=== PATIENT | female | born 1940 | race Caucasian/White ===

== ENCOUNTER → 2018-06-04 10:21 | Outpatient (CLI) | payer MEDICARE, SELFPAY ==
--- NOTE | 2018-06-04 10:23 | BI_ITS ---
MAMMOGRAPHY - BILATERAL SCREENING REASON FOR EXAM: Female, 77 years old. Routine annual screening examination. PERTINENT HISTORY: Grandmother with breast cancer. Remote left excisional breast biopsy. TECHNIQUE: Digital bilateral breast maikol (3D mammographic acquisition) in the CC and MLO projections. 2-D mediolateral oblique (MLO) and craniocaudad (CC) views of both breasts were obtained. CAD: Full Field Digital Mammography with Computer Added Detection was performed. COMPARISON: Comparison is made with prior study dated February 18, 2016. FINDINGS: Breast Composition: The breasts are almost entirely fatty. Since prior study, there has been an increase in the number of microcalcifications in the upper outer quadrant of the right breast. The patient will be recalled for additional views including compression magnification spot views. Stable small calcified nodule in the deep mid medial portion of the left breast. No other significant abnormalities are identified. BI/SCREENING MAMM (CAD), BILAT IMPRESSION: Increased number of microcalcifications in the upper lateral portion of the right breast as described. The patient will be recalled for additional views. Recall Side: Right Breast ASSESSMENT CATEGORY: BIRADS Category 0: Incomplete. Need additional imaging evaluation. A letter regarding these results will be sent to the patient by the facility within 30 days. Approximately 10% of breast cancers are not detected by mammography. A normal mammogram should not delay biopsy of a clinically suspicious abnormality. [id number] Electronically Signed: Devin Flowers MD at 12:21 EDT Tel [phone], Service support ,
--- NOTE | 2018-06-04 12:16 | ECHOD_ITS ---
Reason For Study: HTN Procedure This was a 2D Doppler, Color Flow transthoracic echocardiogram. Exam performed in department. Left Ventricle Normal LV size. Apical false tendon noted. Left ventricular systolic function is normal. The estimated ejection fraction is 65 %. Stage 1 diastolic dysfunction. No regional wall motion abnormalities noted. Right Ventricle Normal RV size. Normal systolic function. Atria Normal left atrium. Normal right atrium. Mitral Valve Normal mitral valve. Tricuspid Valve Normal tricuspid valve. Aortic Valve Normal aortic valve. Trisinus/trileaflet aortic valve. Pulmonic Valve Normal pulmonic valve. Great Vessels Normal aortic root. The pulmonary artery is normal size. Normal inferior vena cava. Pericardium/Pleural No pericardial effusion. MMode/2D Measurements & Calculations LVIDd: 3.6 cm IVSd: 0.94 cm Ao root diam: 3.3 cm LVIDs: 2.6 cm LVPWd: 0.99 cm LA dimension: 4.1 cm RVDd: 3.0 cm FS: 28.3 % LAV(MOD-bp): 46.8 ml LVAd ap4: 24.2 cm2 SV(MOD-sp4): 38.2 ml LAV(MOD-bp) Indexed: 26.4 ml/m2 EDV(MOD-sp4): 63.7 ml LAV(MOD-sp2): 44.5 ml EDV(sp4-el): 66.5 ml LAV(MOD-sp4): 49.6 ml LVAs ap4: 13.8 cm2 ESV(MOD-sp4): 25.4 ml ESV(sp4-el): 26.2 ml EF(MOD-sp4): 60.0 % EF(sp4-el): 60.6 % SV(sp4-el): 40.3 ml LA A4 area: 18.4 cm2 LA dimension(2D): 4.1 cm RA A4 area: 13.5 cm2 Time Measurements MV dec time: 0.38 sec Doppler Measurements & Calculations MV E max kieran: 68.6 cm/sec Lat Peak E' Kieran: 7.5 cm/sec Med Peak E' Kieran: 3.7 cm/sec MV A max kieran: 117.7 cm/sec E/E' lat: 9.2 E/E' med: 18.3 MV E/A: 0.58 Ao V2 max: 156.4 cm/sec LV V1 max: 111.7 cm/sec PA V2 max: 98.2 cm/sec Ao max P.8 mmHg LV V1 max P.0 mmHg Interpretation Summary Normal LV size. Left ventricular systolic function is normal. The estimated ejection fraction is 65 %. Stage 1 diastolic dysfunction. Structurally normal valves. Ordering Physician: Steve Sanderson Referring Physician: GABBY BONNER Performed By: Kimberli Scott RDCS, RVT
== END ==
PROVIDERS: Family Provider Family Medicine; PCP Family Medicine; Referring Provider Internal Medicine Cardiovascular Disease; Visit Provider Internal Medicine Cardiovascular Disease
DX: I25.10 Atherosclerotic heart disease of native coronary artery without angina pectoris (principal); Z12.31 Encounter for screening mammogram for malignant neoplasm of breast
CPT/HCPCS: 77063; 77067; 93306

== ENCOUNTER → 2018-06-06 12:55 | Outpatient (CLI) | payer MEDICARE, SELFPAY ==
--- NOTE | 2018-06-06 12:57 | BI_ITS ---
MAMMOGRAPHY - UNILATERAL DIAGNOSTIC: RIGHT BREAST REASON FOR EXAM: Female, 77 years old. Abnormal screening mammogram. PERTINENT HISTORY: Grandmother with breast cancer. TECHNIQUE: Compression spot views of the right breast were obtained. CAD: Full Field Digital Mammography with Computer Added Detection was performed. COMPARISON: Comparison is made with prior study dated June 04, 2018. FINDINGS: Breast Composition: The breasts are almost entirely fatty. Increasing number of microcalcifications in the upper outer portion of the right breast. A biopsy recommended. No other significant abnormalities are identified. BI/DIAG MAMM W/CAD, UNILAT IMPRESSION: Increase in number of calcifications in the upper outer quadrant of the right breast as described. A biopsy is recommended. ASSESSMENT CATEGORY: BIRADS Category 4: Suspicious - Biopsy Should Be Considered. A letter regarding these results will be sent to the patient by the facility within 30 days. Approximately 10% of breast cancers are not detected by mammography. A normal mammogram should not delay biopsy of a clinically suspicious abnormality. Electronically Signed: Devin Flowers MD at 14:19 EDT Tel [phone], Service support ,
== END ==
PROVIDERS: Family Provider Family Medicine; PCP Family Medicine; Visit Provider Family Medicine
DX: R92.0 Mammographic microcalcification found on diagnostic imaging of breast (principal)
CPT/HCPCS: 77065

== ENCOUNTER → 2018-06-07 10:02 | Outpatient (CLI) | payer MEDICARE, SELFPAY ==
--- NOTE | 2018-06-07 10:02 | COLBX_PTH ---
PATIENT: ROXI CAMPBELL LOC: [facility] U#:[id number] AGE/SX: 84/F ROOM: RE06/07/[address]: Dr. Rigo Jones MD : 1940 BED: DIS: SPEC #: [id number] RECD: 06/07/18 15:33 STATUS: SINDI GONZALEZ #: [id number] TRISTIN: 06/07/18 10:[address]: Rigo Jones DEPT: SURGICAL PATHOLOGY RECD BY: Jamse Levy ENTERED: 06/08/18 11:27 SP TYPE: COLON BX OTHR DR: Dr. Derek Mujica MD [facility] Tissues: Cecum, NOS Procedures: Surgery Specimen Level IV HEADER OPERATION: Colonoscopy with polypectomy PRE-OP DIAGNOSIS: Screening, history polyps TISSUE SUBMITTED: Polyp, cecum, rule out adenoma MICROSCOPIC DIAGNOSIS Polyp cecum, polypectomy: Tubular adenoma. Fragments of fecal material. SJ:bridget 06/11/18 MICROSCOPIC DESCRIPTION Slides are reviewed. GROSS DESCRIPTION Received in fixative is one container labeled with the patient's name and designated cecum polyp. The specimen consists of multiple irregular fragments of light ugarte soft tissue that in aggregate measure 0.5 x 0.3 x 0.1 cm. The specimen is totally submitted in one cassette. / AM:rbidget 06/08/18 TC:1 CPT: 67978
== END ==
PROVIDERS: Family Provider Family Medicine; PCP Family Medicine; Referring Provider Internal Medicine Gastroenterology; Visit Provider Internal Medicine Gastroenterology
DX: Z12.11 Encounter for screening for malignant neoplasm of colon (principal); Z86.010 Personal history of colon polyps
CPT/HCPCS: 88305

== ENCOUNTER → 2018-07-05 10:05 | Outpatient (CLI) | payer MEDICARE, SELFPAY ==
--- NOTE | 2018-07-05 | BRBX_PTH ---
PATIENT: ROXI CAMPBELL LOC: [facility] U#:[id number] AGE/SX: 84/F ROOM: RE07/05/[address]: Dr. Lucretia Capps MD : 1940 BED: DIS: SPEC #: [id number] RECD: 07/05/18 12:04 STATUS: SINDI LISA #: [id number] TRISTIN: 07/05/18 00:[address]: Lucretia Capps DEPT: SURGICAL PATHOLOGY RECD BY: Dawit Mcginnis ENTERED: 07/05/18 12:05 SP TYPE: BREAST BX OTHR DR: Dr. Derek Mujica MD Tissues: Right breast, NOS Procedures: Surgery Specimen Level IV HEADER OPERATION: Right breast stereotactic biopsy PRE-OP DIAGNOSIS: Right breast calcifications upper outer TISSUE SUBMITTED: Right breast calcifications ISCHEMIC TIME: 1 minute FIXATION TIME: 8.5 hours MICROSCOPIC DIAGNOSIS Right breast, upper outer region, needle core biopsy: Microfibroadenoma with clustered microcalcifications. No evidence of malignancy. AM:bridget 07/06/18 COMMENT Case has been reviewed in consultation with Dr. Diane who concurs with the above diagnosis. IDC:SJ MICROSCOPIC DESCRIPTION Slides are reviewed. GROSS DESCRIPTION Received is one container labeled with the patient's name and not further designated. The specimen consists of multiple elongated fragments of ugarte-yellow fibroadipose tissue that in aggregate measure 7.5 x 3 x 0.3 cm. The entire specimen is submitted in three cassettes. / SJ:bridget 07/05/18 TC:5 CPT: 82712
--- NOTE | 2018-07-05 11:28 | NURSING ---
POST BREAST BX NOTE, held pressure for 5 minutes no bleeding, no hardness felt, instructions and home care reviewed, skin pre and steri strips applied, telfa dressing applied, no drainage
--- NOTE | 2018-07-05 11:32 | OP.PCM_ITS ---
Report of Operation Date of Procedure: 07/05/18 Pre-Operative Diagnosis: abnormal calcifications on right breast mammograms Post-Operative Diagnosis: same Surgery/Procedure Performed:: right stereotactic breast biopsy Description of Surgical Findings:: abnormal calcifications upper outer right breast Type of Anesthesia:: Local - 1% xylocaine Anesthesiologist: none Specimen's removed: right breast tissue Estimated Blood Loss (mL): < 1 Fluids Replaced: none Description of Procedure: After informed consent was given, the patient was brought into the breast biopsy suite. Appropriate time out protocol was followed. She was then placed in the prone position on the stereotactic biopsy table. The patient?s right breast was then placed within the opening at the head of the table. A nurse paralegal compression mammogram was then obtained in the CC view. The suspicious radiological lesion was then identified. Stereo pictures of the lesion were then taken for XYZ coordinates. The Mammotome biopsy stylus was then positioned where it would be entering into the patient?s breast. The skin at this site was then cleansed with a surgical skin preparation. The skin and subcutaneous tissues at this site were then infiltrated with 1% xylocaine. A small skin incision was made with an 11 blade scalpel. The biopsy stylus was then positioned into the patient?s breast at the proper coordinates of depth. Using the Mammotome vacuum-assist device, several core samples of breast tissue were obtained. A specimen mammogram was the obtained and revealed that the abnormal calcifications were within the specimen. A hemostatic marker clip was then placed into the biopsy cavity and a nurse paralegal film revealed that it was properly deployed. The patient was then placed in the supine position and pressure was applied to the breast until no active bleeding was noted. Steristrips were applied to reapproximate the skin. A unilateral mammogram in the CC and MLO view were then taken which revealed that the marker clip was in the same area as the previous suspicious lesion. The patient tolerated the procedure well and was discharged from the breast biopsy suite in good condition. - Complications none noted
--- OUTSIDE RECORDS SUMMARY | 2018-08-30 12:01 | XMS RPT_ITS ---
:1940 Author Organization OHIP Support Name Relationship Address Phone R Unavailable Unavailable Unavailable AVISATUL MCCONNELLE Unavailable [address] + [place] [address] STAKE, RAÚL Unavailable [address] + [place] [address] R Unavailable Unavailable Unavailable AVISATUL MCCONNELLE Unavailable [address] + [place] [address] STAKE, RAÚL Unavailable [address] + [place] [address] R Unavailable Unavailable Unavailable AVISATUL MCCONNELLE Unavailable [address] + [place] [address] STAKE, RAÚL Unavailable [address] + [place] [address] R Unavailable Unavailable Unavailable AVIS, BROOK Unavailable [address] + [place] [address] STAKE, RAÚL Unavailable [address] + [place] [address] R Unavailable Unavailable Unavailable AVIS, BROOK Unavailable [address] + [place] [address] STAKE, RAÚL Unavailable [address] + [place] [address] R Unavailable Unavailable Unavailable AVIS, BROOK Unavailable [address] + [place] [address] STAKE, RAÚL Unavailable [address] + [place] [address] R Unavailable Unavailable Unavailable AVIS, BROOK Unavailable [address] + [place] [address] STAKE, RAÚL Unavailable [address] + [place] [address] Care Team Providers Name Role Phone LUCRETIA CAPPS Attending Unavailable GABBY MUJICA Referring Unavailable LUCRETIA CAPPS Attending Unavailable GABBY MUJICA Referring Unavailable Maria E, Steve Attending Unavailable TOMCHAK, GABBY Referring Unavailable TOMCHAK, GABBY Primary Care Unavailable Maria E, Steve Attending Unavailable Maria E, Steve Referring Unavailable TOMCHAK, GABBY Consulting Unavailable Maria E, Conley Attending Unavailable Maria E, Conley Referring Unavailable TOMCHAK, GABBY Primary Care Unavailable Maria E, Steve Attending Unavailable Maria E, Conley Referring Unavailable TOMCHAK, GABBY Primary Care Unavailable TOMCHAK, GABBY Consulting Unavailable Maria E, Steve Consulting Unavailable TOMCHAK, GABBY Attending Unavailable TOMCHAK, GABBY Primary Care Unavailable Jabour, Rigo Attending Unavailable Jazaheer, Rigo Referring Unavailable TOMCHAK, GABBY Primary Care Unavailable Lucretia Capps Attending Unavailable TOMCHAK, GABBY Primary Care Unavailable PROBLEMS PROBLEMS DATE TYPE CONDITION / CODE ATTENDING STATUS SOURCE 06/06/2018 Unknown 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, 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 / I25.10(ICD-10) 06/06/2018 Unknown Z12.31 - Encounter Maria E, Conley Active [facility] for screening Community mammogram for Hospital malignant neoplasm of Repository breast / Z12.31(ICD-10) 05/22/2018 Unknown I10 - Essential Maria E, Conley Active [place] (primary) Community hypertension / Hospital I10(ICD-10) Repository PROCEDURES PROCEDURES No Procedure Records FoundRESULTS RESULTS PROGRESS Observed: 07/12/2018 Status: COMPLETED Source: [place] 6:57 AM [facility] REPOSITORY HNO ID: [id number] Author: Lucretia Capps Service: (none) Author Type: Physician Type: Progress Notes Filed: 07/12/2018 7:00 AM Note Text: Roxi is s/p right stereotactic guided breast biopsy done on 07/05/18 Pathology reveals: Right breast, upper outer region, needle core biopsy: Microfibroadenoma with clustered microcalcifications. No evidence of malignancy Patient denies any problems. PMH/PSH - unchanged from previous note Review of systems: denies fevers Examination: wound is healing well, no evidence of infection Ecchymoses present, no hematoma Impression: microfibroadenoma Plan: I have explained to patient that she will require follow up with repeat right breast mammograms in 6 months. After radiological studies are done, she will follow up with me in the clinic for examination. Follow up with me sooner if worsening signs/symptoms. Patient to return to her primary physician for medical care. I have answered all of patient's questions and she has no further questions. CNOV Observed: 07/11/2018 Status: COMPLETED Source: [place] 2:00 PM [facility] REPOSITORY Office Visit (GENSWS) ROXI CAMPBELL ([id number]) 1940 F Date Time Provider Department 07/11/18 2:00 PM LUCRETIA CAPPSS During your visit today, we recorded the following information about you: Lucretia Capps MD 07/12/2018 7:00 AM Signed Roxi is s/p right stereotactic guided breast biopsy done on 07/05/18 Pathology reveals: Right breast, upper outer region, needle core biopsy: Microfibroadenoma with clustered microcalcifications. No evidence of malignancy Patient denies any problems. PMH/PSH - unchanged from previous note Review of systems: denies fevers Examination: wound is healing well, no evidence of infection Ecchymoses present, no hematoma Impression: microfibroadenoma Plan: I have explained to patient that she will require follow up with repeat right breast mammograms in 6 months. After radiological studies are done, she will follow up with me in the clinic for examination. Follow up with me sooner if worsening signs/symptoms. Patient to return to her primary physician for medical care. I have answered all of patient's questions and she has no further questions. Referring Provider: GABBY MUJICA [[id number]] Allergies As of Date: 07/11/2018 (No Known Allergies) Date Reviewed: 07/11/2018 Reviewed by: Batool Braga RN - Fully Assessed Reason for Visit: Post Op [174] Cmt: breast biopsy Primary Visit Diagnosis:Fibroadenoma of breast, right [D24.1] Order(s):[facility] [[id number]] Order #: [id number] FUTURE Prescriptions as of 07/11/2018 Sig: CHLORTHALIDONE 25 MG TABLET CARTIA XT 240 MG CAPSULE,EXTE* LISINOPRIL 40 MG TABLET LOVASTATIN 20 MG TABLET ASPIRIN 81 MG CHEWABLE TABLET Take 81 mg by mouth once odalis* ASCORBIC ACID (VITAMIN C) 1,0* Take 1,000 mg by mouth once d* Problem List As Of Date: 07/11/2018 (None) Follow-up and Disposition History Recorded Encounter Status:Closed by MD LUCRETIA CAPPS on 07/12/18 OPERATIVE REPORT Observed: 07/08/2018 Status: F Source: [place] 12:44 PM [facility] REPOSITORY [facility] Medical Records Department [address] [place] [address] Operative Report 07/05/18 1130 MR#: [id number] Acct: [id number] Name: ROXI CAMPBELL Rep #: [id number] : 1940 77 From: Lucretia Capps MD PCP: Gabby Mujica MD Status: REG CLI Y Location: [facility] Report of Operation Date of Procedure: 07/05/18 Pre-Operative Diagnosis: abnormal calcifications on right breast mammograms Post-Operative Diagnosis: same Surgery/Procedure Performed:: right stereotactic breast biopsy Description of Surgical Findings:: abnormal calcifications upper outer right breast Type of Anesthesia:: Local - 1% xylocaine Anesthesiologist: none Specimen's removed: right breast tissue Estimated Blood Loss (mL): < 1 Fluids Replaced: none Description of Procedure: After informed consent was given, the patient was brought into the breast biopsy suite. Appropriate time out protocol was followed. She was then placed in the prone position on the stereotactic biopsy table. The patient s right breast was then placed within the opening at the head of the table. A historical interpreter compression mammogram was then obtained in the CC view. The suspicious radiological lesion was then identified. Stereo pictures of the lesion were then taken for XYZ coordinates. The Mammotome biopsy stylus was then positioned where it would be entering into the patient s breast. The skin at this site was then cleansed with a surgical skin preparation. The skin and subcutaneous tissues at this site were then infiltrated with 1% xylocaine. A small skin incision was made with an 11 blade scalpel. The biopsy stylus was then positioned into the patient s breast at the proper coordinates of depth. Using the Mammotome vacuum-assist device, several core samples of breast tissue were obtained. A specimen mammogram was the obtained and revealed that the abnormal calcifications were within the specimen. A hemostatic marker clip was then placed into the biopsy cavity and a historical interpreter film revealed that it was properly deployed. The patient was then placed in the supine position and pressure was applied to the breast until no active bleeding was noted. Steristrips were applied to reapproximate the skin. A unilateral mammogram in the CC and MLO view were then taken which revealed that the marker clip was in the same area as the previous suspicious lesion. The patient tolerated the procedure well and was discharged from the breast biopsy suite in good condition. - Complications none noted 07/08/18 1244 <Electronically signed by Lucretia Capps MD> Date Lucretia Capps MD CC: Gabby Mujica MD; Lucretia Capps MD Signed BREAST BIOPSY Observed: 07/05/2018 Status: F Source: [place] ([place]) 12:00 AM [facility] REPOSITORY Patient: ROXI CAMPBELL : 1940 (77/F) Acct Num: [id number] Phys: Lucretia Capps MD Unit Num: [id number] Loc: [facility] Specimen: [id number] Received: 07/05/18 - 1204 Spec Type: BREAST BX TISSUES 1 TISSUES: Right breast, NOS COMMENT Case has been reviewed in consultation with Dr. Diane who concurs with the above diagnosis. IDC:KORI GROSS DESCRIPTION Received is one container labeled with the patient's name and not further designated. The specimen consists of multiple elongated fragments of ugarte-yellow fibroadipose tissue that in aggregate measure 7.5 x 3 x 0.3 cm. The entire specimen is submitted in three cassettes. / KORI:bridget 07/05/18 TC:5 CPT: 88513 HEADER OPERATION: Right breast stereotactic biopsy PRE-OP DIAGNOSIS: Right breast calcifications upper outer TISSUE SUBMITTED: Right breast calcifications ISCHEMIC TIME: 1 minute FIXATION TIME: 8.5 hours MICROSCOPIC DESCRIPTION Slides are reviewed. MICROSCOPIC DIAGNOSIS Right breast, upper outer region, needle core biopsy: Microfibroadenoma with clustered microcalcifications. No evidence of malignancy. AM:bridget 07/06/18 Signed Schuyler Rios 07/06/18 <signature on file> Performed By: #### PBRBX #### [facility] [address] [place], [address] PROGRESS Observed: 06/22/2018 Status: COMPLETED Source: [place] 1:02 PM [facility] REPOSITORY HNO ID: [id number] Author: Lucretia Capps Service: (none) Author Type: Physician Type: Progress Notes Filed: 06/23/2018 8:08 PM Note Text: Roxi Campbell 1940 REFERRING PHYSICIAN: Gabby Mujica MD CHIEF COMPLAINT: Mammogram Abnormality HPI: The patient is a 77 year old female presents with abnormal right breast mammograms. Had previous right breast biopsy in the 70s or 80s. Denies nipple discharge. Denies palpable breast masses. Denies breast pain. Mother's mother had breast cancer. Brother had prostate cancer. Denies ovarian cancer in the family. Right breast mammograms 06/06/18 - increasing number of microcalcifications in the upper outer portion of the right breast for which biopsy is recommended. PAST MEDICAL HISTORY Diagnosis Date - HTN (hypertension) PAST SURGICAL HISTORY: Denies Current Outpatient Prescriptions: aspirin 81 mg chewable tablet Take 81 mg by mouth once daily. Ascorbic Acid (VITAMIN C) 1,000 mg tablet Take 1,000 mg by mouth once daily. chlorthalidone (HYGROTON) 25 mg tablet CARTIA XT 240 mg 24 hr capsule lisinopril (ZESTRIL, PRINIVIL) 40 mg tablet lovastatin (MEVACOR) 20 mg tablet ALLERGIES: Patient has no known allergies. PERSONAL HISTORY: Social History Marital status: Single Spouse name: Years of education: Number of children: Social History Main Topics Drug use: Unknown FAMILY HISTORY: Mother's mother had breast cancer, brother had prostate cancer. REVIEW OF SYSTEMS: General: The patient denies fatigue, denies weight loss, denies weight gain, denies feeling hot, and denies feelings of cold. Eyes: The patient denies glaucoma, denies eye injury/surgery, does not wear glasses or contacts. Ear/Nose/Throat: The patient denies allergies, denies hayfever, denies ear infections, and denies bloody noses. Cardiovascular: The patient denies chest pain, denies heart disease, denies high blood pressure,denies cardiac stent, denies prior heart attack, denies irregular heart beat, denies high cholesterol, denies poor circulation, denies heart failure, other cardiac issues, denies claudication, denies cold feet, denies peripheral arterial stent. Respiratory: The patient denies tuberculosis, denies pneumonia, denies frequent cough, denies pulmonary embolism, denies shortness of breath, and denies coughing up blood. Gastrointestinal: The patient denies difficulty swallowing, denies acid reflux, denies ulcers, denies vomiting, denies jaundice/hepatitis, denies gallbladder problems, denies black or tarry stools, denies hemorrhoids, denies bleeding from rectum, denies diverticulitis, denies constipation, denies diarrhea, denies loss of stool control, and denies hernias. Kidney/Bladder: The patient denies kidney stones, denies urine infections, and denies bloody urine. Skin: The patient denies a history of skin cancer, denies bleeding/changing moles, and denies a history of skin rash. Neurologic: The patient denies a history of epilepsy/convulsions, denies headaches, denies head/spinal injuries, and denies stroke/TIA. Psychiatric: The patient denies psychiatric medications, denies depression, and denies voices, denies substance abuse. Endocrine: The patient denies thyroid disorders, denies diabetes, and denies hormonal problems. Hematologic: The patient denies a history of bruising, denies bleeding, and denies anemia, denies blood clots. Infections: The patient denies a history of measles and mumps, denies rheumatic fever, and denies sexually transmitted diseases. Musculoskeletal: The patient denies back pain/injury, denies back problems, denies sciatica, denies knee/foot trouble, denies arthritis, or denies gout. Obstetrical: menarche [age], 1, denies exogenous hormones use, had menopause in late 40s PHYSICAL EXAMINATION: General: The patient is 77 year old female, well nourished, well hydrated in no acute distress. The patient is oriented to time, place, and person. VITALS: Blood pressure 150/70, pulse 72, weight 79.4 kg (175 lb). Head ? Normocephalic. EOM intact with sclera clear and no icterus noted. Mouth with mucus membranes moist. Neck - supple with no jugular venous distention noted. Trachea is midline. No carotid bruits noted. No thyroid enlargement or thyroid nodules detected. No masses noted. Chest/breast ? no asymmetry of breasts noted, no suspicious skin lesions noted, no nipple discharge and both nipples everted, nodular breast tissue palpated bilaterally, no suspicious lesions palpated Lungs ? clear to auscultation. Normal breath sounds. No rales/rhonchi/wheezing noted. No labored breathing noted, such as retractions. No cough heard. Heart ? normal S1 and S2 auscultated. No rubs/clicks/murmurs noted. Regular rate. Abdomen ? soft and benign. Normal bowel sounds. No abdominal bruits noted. No distention or tympany noted. Extremities ? no calf tenderness noted. No pitting edema noted. Skin ? normal skin integrity. Lymph ? no cervical adenopathy detected, no supraclavicular adenopathy detected, no axillary adenopathy detected Neurological ? gait normal, no focal deficits noted Psych ? calm and appropriate RADIOLOGIC STUDIES: As Noted Assessment IMPRESSION: abnormal right breast mammograms PLAN: I have discussed the above with the patient. I have offered right breast stereotactic breast biopsy I have explained the procedure to the patient. I have counseled the patient as to the risks of the procedure, including but not limited to: infection, bleeding, injury to any blood vessels/nerves, scar tissue, wound infections, complications of anesthesia, etc. ? the patient understands. The patient wishes to proceed. I have answered all questions to the patient?s satisfaction and the patient has no further questions. . Diagnoses: (R92.8) Abnormal mammogram (primary encounter diagnosis) Return to Clinic: The patient is instructed to follow-up with me after the procedure. Lucretia Capps MD CNOV Observed: 06/22/2018 Status: COMPLETED Source: [place] [address]:50 AM [facility] REPOSITORY Office Visit (GENSWS) ROXI CAMPBELL ([id number]) 1940 F Date Time Provider Department 06/22/18 9:50 AM LUCRETIA CAPPSS During your visit today, we recorded the following information about you: Pulse Blood pressure Weight 72/minute 150/70 79.4 kg Camila Yousif GUZMAN 06/22/2018 9:40 AM Signed REVIEW OF SYSTEMS: General: The patient denies fatigue, denies weight loss, denies weight gain, denies feeling hot, and denies feelings of cold. Eyes: The patient denies glaucoma, denies eye injury/surgery, does not wear glasses or contacts. Ear/Nose/Throat: The patient denies allergies, denies hayfever, denies ear infections, and denies bloody noses. Cardiovascular: The patient denies chest pain, denies heart disease, denies high blood pressure,denies cardiac stent, denies prior heart attack, denies irregular heart beat, denies high cholesterol, denies poor circulation, denies heart failure, other cardiac issues, denies claudication, denies cold feet, denies peripheral arterial stent. Respiratory: The patient denies tuberculosis, denies pneumonia, denies frequent cough, denies pulmonary embolism, denies shortness of breath, and denies coughing up blood. Gastrointestinal: The patient denies difficulty swallowing, denies acid reflux, denies ulcers, denies vomiting, denies jaundice/hepatitis, denies gallbladder problems, denies black or tarry stools, denies hemorrhoids, denies bleeding from rectum, denies diverticulitis, denies constipation, denies diarrhea, denies loss of stool control, and denies hernias. Kidney/Bladder: The patient denies kidney stones, denies urine infections, and denies bloody urine. Skin: The patient denies a history of skin cancer, denies bleeding/changing moles, and denies a history of skin rash. Neurologic: The patient denies a history of epilepsy/convulsions, denies headaches, denies head/spinal injuries, and denies stroke/TIA. Psychiatric: The patient denies psychiatric medications, denies depression, and denies voices, denies substance abuse. Endocrine: The patient denies thyroid disorders, denies diabetes, and denies hormonal problems. Hematologic: The patient denies a history of bruising, denies bleeding, and denies anemia, denies blood clots. Infections: The patient denies a history of measles and mumps, denies rheumatic fever, and denies sexually transmitted diseases. Musculoskeletal: The patient denies back pain/injury, denies back problems, denies sciatica, denies knee/foot trouble, denies arthritis, or denies gout. When was patient's last Mammogram screening? 06/2018 Last Colonoscopy: 2017 Camila Capps MD 06/23/2018 8:08 PM Signed Roxi Campbell 1940 REFERRING PHYSICIAN: Gabby Mujica MD CHIEF COMPLAINT: Mammogram Abnormality HPI: The patient is a 77 year old female presents with abnormal right breast mammograms. Had previous right breast biopsy in the 70s or 80s. Denies nipple discharge. Denies palpable breast masses. Denies breast pain. Mother's mother had breast cancer. Brother had prostate cancer. Denies ovarian cancer in the family. Right breast mammograms 06/06/18 - increasing number of microcalcifications in the upper outer portion of the right breast for which biopsy is recommended. PAST MEDICAL HISTORY Diagnosis Date - HTN (hypertension) PAST SURGICAL HISTORY: Denies Current Outpatient Prescriptions: aspirin 81 mg chewable tablet Take 81 mg by mouth once daily. Ascorbic Acid (VITAMIN C) 1,000 mg tablet Take 1,000 mg by mouth once daily. chlorthalidone (HYGROTON) 25 mg tablet CARTIA XT 240 mg 24 hr capsule lisinopril (ZESTRIL, PRINIVIL) 40 mg tablet lovastatin (MEVACOR) 20 mg tablet ALLERGIES: Patient has no known allergies. PERSONAL HISTORY: Social History Marital status: Single Spouse name: Years of education: Number of children: Social History Main Topics Drug use: Unknown FAMILY HISTORY: Mother's mother had breast cancer, brother had prostate cancer. REVIEW OF SYSTEMS: General: The patient denies fatigue, denies weight loss, denies weight gain, denies feeling hot, and denies feelings of cold. Eyes: The patient denies glaucoma, denies eye injury/surgery, does not wear glasses or contacts. Ear/Nose/Throat: The patient denies allergies, denies hayfever, denies ear infections, and denies bloody noses. Cardiovascular: The patient denies chest pain, denies heart disease, denies high blood pressure,denies cardiac stent, denies prior heart attack, denies irregular heart beat, denies high cholesterol, denies poor circulation, denies heart failure, other cardiac issues, denies claudication, denies cold feet, denies peripheral arterial stent. Respiratory: The patient denies tuberculosis, denies pneumonia, denies frequent cough, denies pulmonary embolism, denies shortness of breath, and denies coughing up blood. Gastrointestinal: The patient denies difficulty swallowing, denies acid reflux, denies ulcers, denies vomiting, denies jaundice/hepatitis, denies gallbladder problems, denies black or tarry stools, denies hemorrhoids, denies bleeding from rectum, denies diverticulitis, denies constipation, denies diarrhea, denies loss of stool control, and denies hernias. Kidney/Bladder: The patient denies kidney stones, denies urine infections, and denies bloody urine. Skin: The patient denies a history of skin cancer, denies bleeding/changing moles, and denies a history of skin rash. Neurologic: The patient denies a history of epilepsy/convulsions, denies headaches, denies head/spinal injuries, and denies stroke/TIA. Psychiatric: The patient denies psychiatric medications, denies depression, and denies voices, denies substance abuse. Endocrine: The patient denies thyroid disorders, denies diabetes, and denies hormonal problems. Hematologic: The patient denies a history of bruising, denies bleeding, and denies anemia, denies blood clots. Infections: The patient denies a history of measles and mumps, denies rheumatic fever, and denies sexually transmitted diseases. Musculoskeletal: The patient denies back pain/injury, denies back problems, denies sciatica, denies knee/foot trouble, denies arthritis, or denies gout. Obstetrical: menarche 14/14, 1, denies exogenous hormones use, had menopause in late 40s PHYSICAL EXAMINATION: General: The patient is 77 year old female, well nourished, well hydrated in no acute distress. The patient is oriented to time, place, and person. VITALS: Blood pressure 150/70, pulse 72, weight 79.4 kg (175 lb). Head ? Normocephalic. EOM intact with sclera clear and no icterus noted. Mouth with mucus membranes moist. Neck - supple with no jugular venous distention noted. Trachea is midline. No carotid bruits noted. No thyroid enlargement or thyroid nodules detected. No masses noted. Chest/breast ? no asymmetry of breasts noted, no suspicious skin lesions noted, no nipple discharge and both nipples everted, nodular breast tissue palpated bilaterally, no suspicious lesions palpated Lungs ? clear to auscultation. Normal breath sounds. No rales/rhonchi/wheezing noted. No labored breathing noted, such as retractions. No cough heard. Heart ? normal S1 and S2 auscultated. No rubs/clicks/murmurs noted. Regular rate. Abdomen ? soft and benign. Normal bowel sounds. No abdominal bruits noted. No distention or tympany noted. Extremities ? no calf tenderness noted. No pitting edema noted. Skin ? normal skin integrity. Lymph ? no cervical adenopathy detected, no supraclavicular adenopathy detected, no axillary adenopathy detected Neurological ? gait normal, no focal deficits noted Psych ? calm and appropriate RADIOLOGIC STUDIES: As Noted Assessment IMPRESSION: abnormal right breast mammograms PLAN: I have discussed the above with the patient. I have offered right breast stereotactic breast biopsy I have explained the procedure to the patient. I have counseled the patient as to the risks of the procedure, including but not limited to: infection, bleeding, injury to any blood vessels/nerves, scar tissue, wound infections, complications of anesthesia, etc. ? the patient understands. The patient wishes to proceed. I have answered all questions to the patient?s satisfaction and the patient has no further questions. . Diagnoses: (R92.8) Abnormal mammogram (primary encounter diagnosis) Return to Clinic: The patient is instructed to follow-up with me after the procedure. Lcuretia Capps MD Referring Provider: GABBY MUJICA [[id number]] Allergies As of Date: 06/22/2018 (No Known Allergies) Date Reviewed: 06/22/2018 Reviewed by: Lucretia Capps - Fully Assessed Reason for Visit: Mammogram Abnormality [4162] Primary Visit Diagnosis:Abnormal mammogram [R92.8] Prescriptions as of 06/22/2018 Sig: ASPIRIN 81 MG CHEWABLE TABLET Take 81 mg by mouth once odalis* ASCORBIC ACID (VITAMIN C) 1,0* Take 1,000 mg by mouth once d* CHLORTHALIDONE 25 MG TABLET CARTIA XT 240 MG CAPSULE,EXTE* LISINOPRIL 40 MG TABLET LOVASTATIN 20 MG TABLET Problem List As Of Date: 06/22/2018 (None) Visit Notes: >> Camila Dodd LPN MonJun 22, 2018 9:39 AM Status: Signed REVIEW OF SYSTEMS: General: The patient denies fatigue, denies weight loss, denies weight gain, denies feeling hot, and denies feelings of cold. Eyes: The patient denies glaucoma, denies eye injury/surgery, does not wear glasses or contacts. Ear/Nose/Throat: The patient denies allergies, denies hayfever, denies ear infections, and denies bloody noses. Cardiovascular: The patient denies chest pain, denies heart disease, denies high blood pressure,denies cardiac stent, denies prior heart attack, denies irregular heart beat, denies high cholesterol, denies poor circulation, denies heart failure, other cardiac issues, denies claudication, denies cold feet, denies peripheral arterial stent. Respiratory: The patient denies tuberculosis, denies pneumonia, denies frequent cough, denies pulmonary embolism, denies shortness of breath, and denies coughing up blood. Gastrointestinal: The patient denies difficulty swallowing, denies acid reflux, denies ulcers, denies vomiting, denies jaundice/hepatitis, denies gallbladder problems, denies black or tarry stools, denies hemorrhoids, denies bleeding from rectum, denies diverticulitis, denies constipation, denies diarrhea, denies loss of stool control, and denies hernias. Kidney/Bladder: The patient denies kidney stones, denies urine infections, and denies bloody urine. Skin: The patient denies a history of skin cancer, denies bleeding/changing moles, and denies a history of skin rash. Neurologic: The patient denies a history of epilepsy/convulsions, denies headaches, denies head/spinal injuries, and denies stroke/TIA. Psychiatric: The patient denies psychiatric medications, denies depression, and denies voices, denies substance abuse. Endocrine: The patient denies thyroid disorders, denies diabetes, and denies hormonal problems. Hematologic: The patient denies a history of bruising, denies bleeding, and denies anemia, denies blood clots. Infections: The patient denies a history of measles and mumps, denies rheumatic fever, and denies sexually transmitted diseases. Musculoskeletal: The patient denies back pain/injury, denies back problems, denies sciatica, denies knee/foot trouble, denies arthritis, or denies gout. When was patient's last Mammogram screening? 06/2018 Last Colonoscopy: 2017 Camila Dodd STUDIO HAND Letter Text Encounter Status:Closed by MD LUCRETIA CAPPS on 06/23/18 COLON BIOPSY (CHOOSE Observed: 06/07/2018 Status: F Source: [facility]) 10:02 AM [facility] REPOSITORY Patient: ROXI CAMPBELL : 1940 (77/F) Acct Num: [id number] Phys: RobertRigo Unit Num: [id number] Loc: LABSPEC Specimen: [id number] Received: 06/07/18 1533 Spec Type: COLON BX TISSUES 1 TISSUES: Cecum, NOS GROSS DESCRIPTION Received in fixative is one container labeled with the patient's name and designated cecum polyp. The specimen consists of multiple irregular fragments of light ugarte soft tissue that in aggregate measure 0.5 x 0.3 x 0.1 cm. The specimen is totally submitted in one cassette. / AM:bridget 06/08/18 TC:1 CPT: 20170 HEADER OPERATION: Colonoscopy with polypectomy PRE-OP DIAGNOSIS: Screening, history polyps TISSUE SUBMITTED: Polyp, cecum, rule out adenoma MICROSCOPIC DESCRIPTION Slides are reviewed. MICROSCOPIC DIAGNOSIS Polyp cecum, polypectomy: Tubular adenoma. Fragments of fecal material. SJ:bridget 06/11/18 Signed Mariano Diane 06/11/18 <signature on file> Performed By: #### PCOLBX #### [facility] [address] [place], [address] DIAG MAMM W/CAD, Observed: 06/06/2018 Status: F Source: [facility] [place] 12:57 PM [facility] RE[facility] Imaging Services [address] [place] [address] DIAG MAMM W/CAD, UNILAT MR#: [id number] Acct: [id number] Name: ROXI CAMPBELL Rep #: [id number] : 1940 F 77 From: Devin Flowers MD PCP: Gabby Mujica MD Status: REG CLI Study: DIAG MAMM W/CAD, UNILAT Date of Exam: 06/06/18 Exam# [id number] Ordering Dr: Gabby Mujica MD MAMMOGRAPHY - UNILATERAL DIAGNOSTIC: RIGHT BREAST REASON FOR EXAM: Female, 77 years old. Abnormal screening mammogram. PERTINENT HISTORY: Grandmother with breast cancer. TECHNIQUE: Compression spot views of the right breast were obtained. CAD: Full Field Digital Mammography with Computer Added Detection was performed. COMPARISON: Comparison is made with prior study dated June 04, 2018. FINDINGS: Breast Composition: The breasts are almost entirely fatty. Increasing number of microcalcifications in the upper outer portion of the right breast. A biopsy recommended. No other significant abnormalities are identified. BI/DIAG MAMM W/CAD, UNILAT IMPRESSION: Increase in number of calcifications in the upper outer quadrant of the right breast as described. A biopsy is recommended. ASSESSMENT CATEGORY: BIRADS Category 4: Suspicious - Biopsy Should Be Considered. A letter regarding these results will be sent to the patient by the facility within 30 days. Approximately 10% of breast cancers are not detected by mammography. A normal mammogram should not delay biopsy of a clinically suspicious abnormality. Electronically Signed: Devin Flowers MD at 14:19 EDT Tel [phone], Service support , CC: Gabby Mujica MD Compressor Service Technician: Signed ECHOCARDIOGRAM COMPLETE Observed: 06/06/2018 Status: F Source: [facility] 6:55 AM [facility] REPOSITORY [facility] Cardiovascular Services [address] [place] [address] Echo Complete 06/04/18 1242 MR#: [id number] Acct: [id number] Name: ROXI CAMPBELL Rep #: [id number] : 1940 77 From: Steve Sanderson MD Attending Dr: Steve Sanderson MD Status: REG CLI Ordering Dr: Steve Sanderson MD Date: 06/04/18 Location: [facility] Sex: F C Admitted: Reason For Study: HTN Procedure This was a 2D Doppler, Color Flow transthoracic echocardiogram. Exam performed in department. Left Ventricle Normal LV size. Apical false tendon noted. Left ventricular systolic function is normal. The estimated ejection fraction is 65 %. Stage 1 diastolic dysfunction. No regional wall motion abnormalities noted. Right Ventricle Normal RV size. Normal systolic function. Atria Normal left atrium. Normal right atrium. Mitral Valve Normal mitral valve. Tricuspid Valve Normal tricuspid valve. Aortic Valve Normal aortic valve. Trisinus/trileaflet aortic valve. Pulmonic Valve Normal pulmonic valve. Great Vessels Normal aortic root. The pulmonary artery is normal size. Normal inferior vena cava. Pericardium/Pleural No pericardial effusion. MMode/2D Measurements AND Calculations LVIDd: 3.6 cm IVSd: 0.94 cm Ao root diam: 3.3 cm LVIDs: 2.6 cm LVPWd: 0.99 cm LA dimension: 4.1 cm RVDd: 3.0 cm FS: 28.3 % LAV(MOD-bp): 46.8 ml LVAd ap4: 24.2 cm2 SV(MOD-sp4): 38.2 ml LAV(MOD-bp) Indexed: 26.4 ml/m2 EDV(MOD-sp4): 63.7 ml LAV(MOD-sp2): 44.5 ml EDV(sp4-el): 66.5 ml LAV(MOD-sp4): 49.6 ml LVAs ap4: 13.8 cm2 ESV(MOD-sp4): 25.4 ml ESV(sp4-el): 26.2 ml EF(MOD-sp4): 60.0 % EF(sp4-el): 60.6 % SV(sp4-el): 40.3 ml LA A4 area: 18.4 cm2 LA dimension(2D): 4.1 cm RA A4 area: 13.5 cm2 Time Measurements MV dec time: 0.38 sec Doppler Measurements AND Calculations MV E max kieran: 68.6 cm/sec Lat Peak E' Kieran: 7.5 cm/sec Med Peak E' Kieran: 3.7 cm/sec MV A max kieran: 117.7 cm/sec E/E' lat: 9.2 E/E' med: 18.3 MV E/A: 0.58 Ao V2 max: 156.4 cm/sec LV V1 max: 111.7 cm/sec PA V2 max: 98.2 cm/sec Ao max P.8 mmHg LV V1 max P.0 mmHg Interpretation Summary Normal LV size. Left ventricular systolic function is normal. The estimated ejection fraction is 65 %. Stage 1 diastolic dysfunction. Structurally normal valves. Ordering Physician: Steve Sanderson Referring Physician: GABBY MUJICA Performed By: Kimberli Scott, SILVERIO, RVT 06/06/1855 Date Steve Sanderson MD CC: Steve Sanderson MD; Gabby Mujica MD Date Dictated: 06/04/18 1242 Date Transcribed: 06/06/18654 Compressor Service Technician: Signed MAMM OUTSIDE DICOM Observed: 06/06/2018 Status: F Source: [facility] 12:00 AM [facility] REPOSITORY Images were obtained outside of [facility] [id number] SCREENING MAMM (CAD), Observed: 06/04/2018 Status: F Source: [place] 10:23 AM [facility] REPOSITORY [facility] Imaging Services [address] [place] [address] SCREENING MAMM (CAD), BILAT MR#: [id number] Acct: [id number] Name: ROXI CAMPBELL Rep #: [id number] : 1940 F 77 From: Devin Flowers MD PCP: Gabby Mujica MD Status: [facility] Study: SCREENING MAMM (CAD), BILAT Date of Exam: 06/04/18 Exam# [id number] Ordering Dr: Gabby Mujica MD MAMMOGRAPHY - BILATERAL SCREENING REASON FOR EXAM: Female, 77 years old. Routine annual screening examination. PERTINENT HISTORY: Grandmother with breast cancer. Remote left excisional breast biopsy. TECHNIQUE: Digital bilateral breast maikol (3D mammographic acquisition) in the CC and MLO projections. 2-D mediolateral oblique (MLO) and craniocaudad (CC) views of both breasts were obtained. CAD: Full Field Digital Mammography with Computer Added Detection was performed. COMPARISON: Comparison is made with prior study dated February 18, 2016. FINDINGS: Breast Composition: The breasts are almost entirely fatty. Since prior study, there has been an increase in the number of microcalcifications in the upper outer quadrant of the right breast. The patient will be recalled for additional views including compression magnification spot views. Stable small calcified nodule in the deep mid medial portion of the left breast. No other significant abnormalities are identified. BI/SCREENING MAMM (CAD), BILAT IMPRESSION: Increased number of microcalcifications in the upper lateral portion of the right breast as described. The patient will be recalled for additional views. Recall Side: Right Breast ASSESSMENT CATEGORY: BIRADS Category 0: Incomplete. Need additional imaging evaluation. A letter regarding these results will be sent to the patient by the facility within 30 days. Approximately 10% of breast cancers are not detected by mammography. A normal mammogram should not delay biopsy of a clinically suspicious abnormality. [id number] Electronically Signed: Devin Flowers MD at 12:21 EDT Tel [phone], Service support , CC: Gabby Mujica MD Compressor Service Technician: Signed MAMM OUTSIDE DICOM Observed: 06/04/2018 Status: F Source: [facility] -[facility] 12:00 AM [facility] REPOSITORY Images were obtained outside of [facility] [id number] CARDIOLOGY VISIT Observed: 05/22/2018 Status: F Source: [facility] 9:03 AM [facility] REPOSITORY [facility] [address] [place] [address] OFFICE VISIT Date of Service: 05/22/18 MR#: [id number] Acct: [id number] Name: ROXI CAMPBELL Rep #: [id number] : 1940 Provider: Steve Sanderson MD Age/Sex: 77/F [place] [facility] [place] Signed [facility] Chief Complaint: Follow-up visit. Details: ROXI CAMPBELL, is a 77 F who presents to the office today for a follow-up visit. She is a lady with a history of minimal coronary artery disease hypertension who returns for routine follow-up visit. She denies any chest pain or shortness breath or paroxysmal nocturnal dyspnea or pedal edema. She says that she recently saw you for a physical. She has been compliant with all her medications. Her physical exam today demonstrates clear lung saleh regular rate and rhythm and no pedal edema. 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 Required: No Accompanied by: none Is patient in pain?: No Allergies No Known Allergies Allergy (Verified 05/22/18 08:37) Medications chlorthalidone 25 mg tablet 25 mg PO DAILY 05/22/18 [History Confirmed 05/22/18] diltiazem CD 240 mg capsule,extended release 24 hr 240 mg PO DAILY 05/22/18 [History Confirmed 05/22/18] lisinopril 40 mg tablet 40 mg PO DAILY 05/22/18 [History Confirmed 05/22/18] lovastatin 20 mg tablet 20 mg PO DAILY 05/22/18 [History Confirmed 05/22/18] [facility] Medical History Atherosclerosis of coronary artery of [place] heart without angina pectoris (Chronic) Benign hypertension (Chronic) Family History Father CAD (coronary artery disease) Sister CVA (cerebral vascular accident) Brother CAD (coronary artery disease) Diabetes Social History Smoking Status: Never smoker ROS Const Const: Negative for fatigue, weakness, night sweats, excessive sweating, frequent falls, headache(s) or daytime sleepiness Eyes Eyes: Negative for loss of peripheral vision, transient loss of vision, blind spots, double vision or blurry vision ENT ENT: Negative for headache(s), dizziness, balance problems, Nosebleed/epistaxis, tongue swelling or lip swelling Cardio Chest Pain: No Palpitations: No Edema: None Muscle aches with walking: None Resp Respiratory: Negative for SOB at rest, SOB orthopnea\SOB lying down, Cough, paroxysmal nocturnal dyspnea or SOB with activity GI GI: Negative nausea, vomiting, heartburn, black,tarry stools or bright, red blood in stools : Negative for hematuria Musc Musc: Negative for balance problems, muscle aches/ myalgia, muscle weakness or joint pain Skin Skin: Negative non-healing lesions, unusual bruising or rash Neuro Neuro: Negative for weakness, frequent falls, headache(s), double vision, dizziness, lightheadedness, orthostatic symptoms, blurry vision or lack of coordination James Hematologic/Lymphatic: Negative for easy bruising or easy bleeding Endo Endo: Negative for fatigue, excessive sweating, cold intolerance, heat intolerance, increased thirst/drinking or hair loss Psych Psych: Negative for anxiety or depression Allergy Allergy/Immunology: Negative for throat swelling, Negative for tongue swelling, Negative for hives, Negative for rash, Negative for lip swelling Cardiology Exam Const Appearance: cooperative, healthy appearing, well developed, well groomed and no acute distress Nutritional Appearance: well nourished and average body habitus Orientation: alert, awake and oriented x3 Head Head: normal to inspection, normocephalic and atraumatic Ears: hearing grossly normal bilaterally and external ears normal Nose: external nose normal, nasal mucous membranes and turbinates normal, nares normal, septum normal, no nasal discharge Face and Sinus: face symmetric Mouth: oral mucosae normal, tongue normal, oropharynx normal and moist mucous membranes Teeth and gingiva: dentition normal Throat: posterior oropharynx normal, tonsils normal and uvula midline Eyes General: appearance normal, both eyes and all related structures Eyelids: eyelids normal Conjunctivae: conjunctivae normal Pupils: PERRL, normal by confrontation and accommodation normal EOM: EOM intact bilaterally Neck Neck: normal visual inspection, trachea midline and no JVD JVD: +5 Carotids: normal carotid upstroke and bounding pulses Chest Chest inspection: normal inspection of the chest, symmetric chest movement and normal respiratory effort Auscultation: Bilateral: Clear to Auscultation Cardio Palpation: normal PMI Rate: regular rate Rhythm: regular rhythm Heart sounds: S1 normal, S2 normal and normal, physiologic split S2; negative rub, gallop or murmur GI GI: normal to inspection, soft, no hepatosplenomegaly and bowel sounds present Neuro General: alert, awake, oriented x3, no focal sensory deficit, gait normal and moves all extremities Skin Skin: no rashes or lesions noted Extremities Pulses: Normal: Right Femoral Pulse, Left Femoral Pulse, Right Dorsalis Pedis Pulse, Left Dorsalis Pedis Pulse, Right Posterior Tibial Pulse, Left Posterior Tibial Pulse, Right Radial Pulse, Left Radial Pulse Lower Extremity Edema: None: Bilateral Musculoskel Musculoskeletal: No joint tenderness Psych Psychological: normal affect Assessment AND Plan 1. HTN (hypertension), benign I10 Plan She does have a history of hypertension which appears to be well controlled at this time. My recommendation is to continue the same medications and for us to see her on an as-needed basis only. I would like us to obtain a more recent echocardiogram to reassess her left ventricular function. Further recommendations be made based on the results of the above tests. 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) Coding Level of Care Code Off vis,est,level 3 Diagnoses HTN (hypertension), benign I10 Coding Level of Care Code Off vis,est,level 3 Diagnoses HTN (hypertension), benign I10 1016/18 0903 <Electronically signed by Steve Sanderson MD> Date Steve Sanderson MD Cosigner Signature: Date (if applicable) CC: Gabby Mujica MD ALLERGIES ALLERGIES DATE TYPE / CODE NAME / CODE REACTION SEVERITY SOURCE 05/22/2018 Drug No Known Unknown [facility] Allergy/416 Allergies/X92999 Hospital 048546(SNOM 0388(RXNORM) Repository ED CT) Drug NO KNOWN [facility] Class/35061 ALLERGIES [place] 1003(SNOMED Repository CT) ENCOUNTERS ENCOUNTERS ADMIT/DISCHARGE ACCOUNT ADMITTING ENCOUNTER LOCATION SOURCE NUMBER CLASS 07/11/2018/07/13/20 [id number] Ambulatory [address] Repository 07/05/2018 [id number] Ambulatory [facility] ing:BIRAD Repository 06/22/2018/06/26/20 [id number] Ambulatory [address] Repository 06/07/2018 [id number] Ambulatory [facility] ing:LABSPEC Repository 06/06/2018 [id number] Ambulatory [facility] ing:[facility] Repository 06/04/2018 [id number] Ambulatory [facility] Hospital ing:[facility] Repository 06/04/2018 [id number] Ambulatory BMSBuilding:B [place] Repository 06/04/2018 [id number] Ambulatory [facility] ing:[facility]BI Repository 05/22/2018/05/22/20 [id number] Ambulatory BMSBuilding:B [place] [address] MS.[facility] Repository PAYERS PAYERS ENCOUNTER GUARANTOR PAYER SUBSCRIBER SOURCE 07/05/2018 ROXI SERRANO5 S Insurance:HUMANA FERGUSONDOB: Community WOOD MEDICARE PPOPolicy [id number], Number: Repository [place] [address]Zxd: [id number] Date:0727-58-83UJ BOX () [address] [place] [id number]: 07/05/2018 Secondary NOT GIVENUNK [place] Insurance:SELF PAY [facility] Number: Effective Repository Date:2018-06-22 06/07/2018 ROXI See Primary ROXI See [place] [id number] S Insurance:HUMANA FERGUSONDOB: Community WOOD MEDICARE PPOPolicy [id number], Number: Repository [place] [address]Gge: [id number] Date:6900-18-73YO BOX () [address] [place] [phone]: 06/07/2018 Secondary NOT GIVENUNK [place] Insurance:SELF PAY [facility] Number: Effective Repository Date:2018-06-07 06/06/2018 ROXI See Primary ROXI K [place] [id number] S Insurance:HUMANA FERGUSONDOB: Community WOOD MEDICARE PPOPolicy [id number] [address], Number: Repository [place] [id number]: [id number] Date:5621-37-33PJ BOX () [address] [place] [id number]: 06/06/2018 Secondary NOT GIVENUNK [place] Insurance:SELF PAY [facility] Number: Effective Repository Date:2018-06-05 06/04/2018 ROXI See Primary ROXI See [place] [id number] S Insurance:HUMANA FERGUSONDOB: Community WOOD MEDICARE PPOPolicy [id number], Number: Repository [place] [address]Coa: [id number] Date:3771-69-26LN BOX () [address] [place] [phone]: 06/04/2018 Secondary NOT GIVENUNK [place] Insurance:SELF PAY [facility] Number: Effective Repository Date:2018-05-22 06/04/2018 ROXI See Primary ROXI See [place] [id number] S Insurance:HUMANA FERGUSONDOB: Community WOOD MEDICARE PPOPolicy [id number], Number: Repository [place] [address]Mka: [id number] Date:4120-42-97WG BOX () [address] [place] [id number]: 06/04/2018 Secondary NOT GIVENUNK [place] Insurance:SELF PAY [facility] Number: Effective Repository Date:2018-06-04 06/04/2018 ROXI See Primary ROXI See [place] [id number] S Insurance:HUMANA FERGUSONDOB: Community WOOD MEDICARE PPOPolicy [id number], Number: Repository [place] [address]Sob: [id number] Date:8965-68-20KV BOX () [address] [place] [id number]: 06/04/2018 Secondary NOT GIVENUNK [place] Insurance:SELF PAY [facility] Number: Effective Repository Date:2018-05-04 05/22/2018 ROXI CAMPBELL315 Primary ROXI [place] [facility] Insurance:HUMANA FERGUSONDOB: [place], MEDICARE PPOPolicy [id number] [id number]: Number: Repository [id number] () Date:3308-02-24QK [address] [place] [id number]: 05/22/2018 Secondary NOT GIVENUNK [place] Insurance:SELF PAY [facility] Number: Effective Repository Date:2018-05-22
== END ==
PROVIDERS: Family Provider Family Medicine; PCP Family Medicine; Visit Provider Surgery
DX: D24.1 Benign neoplasm of right breast (principal); I10 Essential (primary) hypertension; Z79.82 Long term (current) use of aspirin; Z79.899 Other long term (current) drug therapy
CPT/HCPCS: 19081; 88305; J7050; A4648

== ENCOUNTER → 2019-06-05 | Outpatient (CLI) | payer MEDICARE, SELFPAY ==
--- NOTE | 2019-06-05 08:56 | BD_ITS ---
STUDY: DUAL ENERGY X-RAY ABSORPTIOMETRY / DXA REASON FOR EXAM: Female, 78 years old. Early menopause. Loss of height. TECHNIQUE: Bone Mineral Density (BMD) measurements of lumbar spine and bilateral hips were obtained. COMPARISON: None. FINDINGS: Lumbar Spine (L1-L4): g/cm2 (0.881) / T-score (-2.4) / Z-score (0.6) Findings are suggestive of osteopenia with a high fracture risk. Left Femur Total: g/cm2 (0.851) / T-score (-1.2) / Z-score (0.6) Left Femoral Neck: g/cm2 (0.732) / T-score (-2.2) / Z-score (-0.2) Right Femur Total: g/cm2 (0.812) / T-score (-1.5) / Z-score (0.3) Right Femoral Neck: g/cm2 (0.703) / T-score (-2.4) / Z-score (-0.4) BD/Dexa Bone Density Study IMPRESSION: The patient is considered osteopenic as outlined below according to World Wes Organization (WHO) criteria with a high fracture risk. Reference Information: The T-score is the number of standard deviations above or below the standard which is normal for young adults at their peak bone mineral density. The World Health Organization (WHO) interprets the T-scores as follows: Above -1 Normal bone density Between -1 and -2.5 Osteopenia Equal to / or below -2.5 Osteoporosis As a practical clinical guideline, osteopenia may be graded as follows: Mild -1 through -1.5 Moderate -1.6 through -2.0 Severe -2.1 through -2.4 The Z-score is the number of standard deviations above or below age-matched controls. A Z-score of less than -1.5 would be considered abnormal. References: 1. NIH Osteoporosis and Related Bone Diseases http://www.osteo.org 2. International Society for Clinical Densitometry http://www.iscd.org 3. National Osteoporosis Foundation http://www.nof.org Electronically Signed: Devin Flowers, at 13:18 EDT , Service support ,
[2019-06-05 10:00] LABS: PTHIN 146.8 pg/mL (18.4-80.1)
== END | disposition home or self-care (01) ==
PROVIDERS: Family Provider Family Medicine; PCP Family Medicine; Referring Provider Family Medicine; Visit Provider Family Medicine
DX: E83.52 Hypercalcemia (principal); Z78.0 Asymptomatic menopausal state
CPT/HCPCS: 36415; 77080; 83970

== ENCOUNTER → 2019-09-17 | Outpatient (CLI) | payer MEDICARE, SELFPAY ==
[2019-09-12 13:13] VITALS: BMI 33.6
--- NOTE | 2019-09-17 09:31 | NM_ITS ---
CLINICAL: 78-year-old female with reported history of clinical hyperparathyroidism. 99m Tc SESTAMIBI DUAL PHASE PARATHYROID SCINTIGRAPHY COMPARISON: None available FINDINGS: Following the intravenous administration of 27.0 mCi of 99m Tc sestamibi, image acquisitions of the anterior neck at 20 minutes and 3.0 hours post radiopharmaceutical provision reveal: 1. Immediate static blood pool acquisitions demonstrate heterogeneous radiopharmaceutical concentration noted in the right-left lobes of U- shaped thyroid gland. The left lobe is larger than right. 2. Delayed images depict incomplete washout of the radiotracer from the previously defined right-left thyroid colloid. There is no significant focal increased tracer concentration noted in the right-left thyroid beds. NM/Parathyroid Scan IMPRESSION: 1. NEGATIVE 99m Tc SESTAMIBI PARATHYROID IMAGING DUAL PHASE EXAMINATION. 2. There is no definitive typical scintigraphic evidence of parathyroid adenoma on the present evaluation. Electronically Signed: Manuel Mayfield DO at 23:12 EST Tel , Service support ,
== END | disposition home or self-care (01) ==
LOC: NM 09:31
PROVIDERS: PCP Family Medicine; Referring Provider Internal Medicine Endocrinology, Diabetes & Metabolism; Visit Provider Internal Medicine Endocrinology, Diabetes & Metabolism
DX: E21.0 Primary hyperparathyroidism (principal)
CPT/HCPCS: 78070; A9500

== ENCOUNTER 2021-08-19 14:49 | Outpatient (CLI) | payer MEDICARE, SELFPAY ==
--- NOTE | 2021-08-19 14:52 | BI_ITS ---
MAMMOGRAPHY - BILATERAL SCREENING REASON FOR EXAM: Female, 80 years old. Routine annual screening examination. PERTINENT HISTORY: Grandmother with breast cancer. Remote left excisional breast biopsy. TECHNIQUE: Digital bilateral breast mackenzie (3D mammographic acquisition) in the CC and MLO projections. 2-D mediolateral oblique (MLO) and craniocaudad (CC) views of both breasts were obtained. CAD: Full Field Digital Mammography with Computer Added Detection was performed. COMPARISON: Comparison is made with prior study dated 02/18/2016 and 06/04/2018. FINDINGS: Breast Composition: The breasts are almost entirely fatty. There are no dominant masses or suspicious calcifications. A tissue clip marker is seen within the small nodule in the upper lateral aspect of the right breast a clip with prior stereotactic biopsy. No other significant abnormalities are identified. There has been no significant change since the prior study. BI/SCRN MAMM (CAD)W/MACKENZIE BILAT IMPRESSION: Stable bilateral screening mammogram. Yearly follow-up mammogram recommended. (A) ASSESSMENT CATEGORY: BIRADS Category 2: Benign. A letter regarding these results will be sent to the patient by the facility within 30 days. Approximately 10% of breast cancers are not detected by mammography. A normal mammogram should not delay biopsy of a clinically suspicious abnormality. [id number] Electronically Signed: Devin Flowers MD at 15:40 EST , Service support ,
--- NOTE | 2021-08-19 15:16 | BD_ITS ---
STUDY: DUAL ENERGY X-RAY ABSORPTIOMETRY / DXA REASON FOR EXAM: Female, 80 years old. Z780. Patient is postmenopausal. TECHNIQUE: Bone Mineral Density (BMD) measurements of lumbar spine and bilateral hips were obtained. COMPARISON: Comparison is made with prior study 06/05/2019. FINDINGS: Lumbar Spine (L1-L4): g/cm2 (0.822) / T-score (-2.0) / Z-score (0.6) Findings are suggestive of osteopenia with a moderate fracture risk. Left Femur Total: g/cm2 (0.746) / T-score (-1.6) / Z-score (0.4) Left Femoral Neck: g/cm2 (0.550) / T-score (-2.7) / Z-score (-0.4) Right Femur Total: g/cm2 (0.741) / T-score (-1.6) / Z-score (0.4) Right Femoral Neck: g/cm2 (0.575) / T-score (-2.5) / Z-score (-0.2) The T-Scores on the most recent prior examination were: Lumbar Spine (L1-L4): There has been worsening of bone density since the previous examination. Left Femur Total: which represents a worsening of 5.5%. Right Femur Total: which represents a worsening of 1.5%. BD/Dexa Bone Density Study IMPRESSION: The patient is considered osteoporotic as outlined below according to World [place] Organization (WHO) criteria with a high fracture risk. There has been worsening of bone density since the previous examination. Reference Information: The T-score is the number of standard deviations above or below the standard which is normal for young adults at their peak bone mineral density. The World Health Organization (WHO) interprets the T-scores as follows: Above -1 Normal bone density Between -1 and -2.5 Osteopenia Equal to / or below -2.5 Osteoporosis As a practical clinical guideline, osteopenia may be graded as follows: Mild -1 through -1.5 Moderate -1.6 through -2.0 Severe -2.1 through -2.4 The Z-score is the number of standard deviations above or below age-matched controls. A Z-score of less than -1.5 would be considered abnormal. References: 1. NIH Osteoporosis and Related Bone Diseases www osteo.org 2. International Society for Clinical Densitometry www iscd.org 3. National Osteoporosis Foundation www nof.org Electronically Signed: Devin Flowers MD at 15:49 EST , Service support ,
== END 2021-08-19 23:59 | disposition short-term general hospital (02) ==
LOC: OPBD 14:50
PROVIDERS: PCP Family Medicine; Referring Provider Family Medicine; Visit Provider Family Medicine
DX: Z78.0 Asymptomatic menopausal state (principal); Z12.31 Encounter for screening mammogram for malignant neoplasm of breast
CPT/HCPCS: 77063; 77067; 77080

== ENCOUNTER → 2023-07-13 | Outpatient (CLI) | payer MEDICARE, SELFPAY ==
[2023-07-13 12:18] LABS: Absolute Neutrophil Count 3.3 X10^3/uL (2.0-7.7); Basophil# 0.04 X10^3/uL; Basophil% 0.8 % (0-1); Eosinophil# 0.04 X10^3/uL; Eosinophils% 0.8 % (0-5); Hematocrit 34.5 % (37-47); Hemoglobin 12.6 g/dL (12.0-15.0); Mean Corp Hgb Conc 36.5 g/dL (32-36); Mean Corpuscular Hgb 35.9 pg (27.0-32.0); Mean Corpuscular Volume 98.3 fL (81-99); Monocyte# 0.28 X10^3/uL; Monocyte% 5.9 % (0-10); NRBC Flagged by Analyzer 0 % (0-5); Neutrophil # 3.29 X10^3/uL (2.7-7.7); Neutrophil % 68.9 % (47-70); Platelet Count 164 K/mm3 (150-450); RBC Distribution Width CV 15.5 % (11.6-14.6); RBC Distribution Width SD 52.4 fl (35.1-43.9); Red Blood Count 3.51 M/mm3 (4.2-5.4); White Blood Count 4.8 K/mm3 (4.4-11.0)
[2023-07-13 12:33] LABS: ALB/GLOB Ratio 1.2 RATIO (0.9-2.4); AST(SGOT) 17 U/L (15-37); Alanine Aminotransfer ALT/SGPT 23 U/L (13-56); Albumin, Serum 3.7 g/dL (3.2-5.0); Alkaline Phosphatase 122 U/L (45-117); Anion Gap 2 (5-15); BUN 13 mg/dL (7-18); BUN/Creat Ratio 20.9 RATIO (10-20); Calcium,Total 10.5 mg/dL (8.5-10.1); Chloride 110 mmol/L (98-107); Creatinine, Serum 0.62 mg/dL (0.55-1.02); EST Glomerular Filtration Rate 98 mL/min (>60); Est Glom Filt Rate - Afr Amer 118 mL/min (>60); Globulin 3.2 g/dL (2.2-4.2); Glucose 85 mg/dL (74-106); Potassium 4.6 mmol/L (3.5-5.1); Protein, Total 6.9 g/dL (6.4-8.2); Sodium Level 142 mmol/L (136-145)
== END | disposition home or self-care (01) ==
LOC: LABSPEC 12:07
PROVIDERS: PCP Family Medicine; Referring Provider Internal Medicine; Visit Provider Internal Medicine
DX: I10 Essential (primary) hypertension (principal)
CPT/HCPCS: 80053; 85025

== ENCOUNTER → 2023-09-14 | Outpatient (CLI) | payer MEDICARE, SELFPAY ==
--- NOTE | 2023-09-14 10:46 | BD_ITS ---
STUDY: DUAL ENERGY X-RAY ABSORPTIOMETRY / DXA REASON FOR EXAM: Female, 82 years old. M810 TECHNIQUE: Bone Mineral Density (BMD) measurements of lumbar spine and bilateral hips were obtained. COMPARISON: Comparison is made with prior study dated August 19, 2021. FINDINGS: Lumbar Spine (L1-L4): g/cm2 (0.825) / T-score (-2.0) / Z-score (0.7) Findings are suggestive of osteopenia with a moderate fracture risk. Left Femur Total: g/cm2 (0.741) / T-score (-1.7) / Z-score (0.5) Left Femoral Neck: g/cm2 (0.510) / T-score (-3.1) / Z-score (-0.7) Right Femur Total: g/cm2 (0.709) / T-score (-1.9) / Z-score (0.2) Right Femoral Neck: g/cm2 (0.546) / T-score (-2.7) / Z-score (-0.3) The T-Scores on the most recent prior examination were: Lumbar Spine (L1-L4): There has been improvement of bone density since the previous examination. Left Femur Total: which represents a worsening of 0.8%. Right Femur Total: which represents a worsening of 4.3%. BD/Dexa Bone Density Study IMPRESSION: The patient is considered osteoporotic as outlined below according to World [place] Organization (WHO) criteria with a high fracture risk. There has been worsening of bone density since the previous examination. Reference Information: The T-score is the number of standard deviations above or below the standard which is normal for young adults at their peak bone mineral density. The World Health Organization (WHO) interprets the T-scores as follows: Above -1 Normal bone density Between -1 and -2.5 Osteopenia Equal to / or below -2.5 Osteoporosis As a practical clinical guideline, osteopenia may be graded as follows: Mild -1 through -1.5 Moderate -1.6 through -2.0 Severe -2.1 through -2.4 The Z-score is the number of standard deviations above or below age-matched controls. A Z-score of less than -1.5 would be considered abnormal. References: 1. NIH Osteoporosis and Related Bone Diseases www osteo.org 2. International Society for Clinical Densitometry www iscd.org 3. National Osteoporosis Foundation www nof.org Electronically Signed: Devin Flowers MD at 9:44 EST ,
== END | disposition home or self-care (01) ==
LOC: OPBD 10:32
PROVIDERS: PCP Nurse Practitioner Family; Referring Provider Nurse Practitioner Family; Visit Provider Nurse Practitioner Family
DX: M81.0 Age-related osteoporosis without current pathological fracture (principal)
CPT/HCPCS: 77080

== ENCOUNTER 2024-05-19 10:28 | Emergency (ER) | payer MEDICARE, SELFPAY ==
[2024-05-19 10:29] VITALS: BP 161/54; PULSE 60; RESP 16; TEMP 36.7; O2SAT 99
--- NOTE | 2024-05-19 10:37 | RAD_ITS ---
STUDY: X-RAY - RIGHT ANKLE REASON FOR EXAM: Female, 83 years old. Pain and swelling TECHNIQUE: 3 view(s) of the ankle. COMPARISON: None. FINDINGS: There is an acute, minimally displaced fracture of the distal fibula with associated soft tissue swelling. Normal visualized distal tibia. Normal medial malleoli. Normal tibiotalar articulation and ankle mortise. Normal visualized talus, calcaneal spurs. The visualized subtalar, talonavicular, calcaneocuboid and tarsal articulations are normal. The soft tissue structures are unremarkable. RAD/Ankle min 3 Views IMPRESSION: Acute minimally displaced fracture in the distal tip of the lateral malleolus with soft tissue swelling No demonstrated fracture in the distal tibia or talus Calcaneal spurs Electronically Signed: Aki Ricks MD at 11:06 EDT ,
--- NOTE | 2024-05-19 10:38 | ED.VIS.FALL ---
HPI HPI - Fall History of Present Illness Chief Complaint: Fall Narrative Narrative: Chief complaint and HPI: Right ankle pain. 83-year-old female presents for evaluation of right ankle pain. 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 She denies hitting her head. She denies injury to the neck, back, other extremities. Patient is able to ambulate. She has swelling in the area. She denies any numbness or tingling. Took a Tylenol prior to arrival. Denies ice. States she wants to make sure it is not broken. Review of systems: See HPI Medications: As listed on the chart Allergies: As listed on the chart PFSH: Per chart Vital signs: As listed on the chart. Reviewed. Physical exam: Gen: A&O x3, NAD Head: Normocephalic, atraumatic Eyes: No sclera icterus, conjunctiva clear ENT: Moist mucous membranes Neck: Full range of motion CV: Regular rate Resp: Nonlabored respiration Musc: Full ROM, normal gait, no deformity, strength +5/5 bilateral lower extremities, DP/PT pulses plus 2 out of 4 bilaterally, swelling to the right ankle compared to the left-most of the swelling is at the lateral malleolus, mildly tender to palpation in this area, full passive and active range of motion although has some pain with inversion and eversion of the ankle, foot nontender to palpation, calf and knee nontender to palpation, good capillary refill, sensation intact Skin: Warm, dry, intact Psych: Cooperative, appropriate mood and affect [facility] Medical History (Updated 09/26/19 @ 09:[address] Mauro Ruth MD) Vitamin deficiency Pneumonia Hives Hypertension Calcium deficiency Cataract Breast lump Frequent UTI Back problem Atherosclerosis of coronary artery of [place] heart without angina pectoris Benign hypertension Home Medications ?Medication ?Instructions ?Recorded ?Last Taken ?Type chlorthalidone 25 mg tablet 25 mg PO DAILY 1/2 tab daily 05/22/18 Unknown History lisinopril 40 mg tablet 40 mg PO DAILY 05/22/18 Unknown History aspirin 81 mg tablet,delayed 81 mg PO DAILY 08/28/19 Unknown History release (Aspir-) calcium carbonate (Calcium 500) 500 mg PO DAILY 08/28/19 Unknown History cholecalciferol (vitamin D3) 75 2,000 unit PO DAILY 08/28/19 Unknown History mcg (3,000 unit) tablet cyanocobalamin (vitamin B-12) 2,000 mcg PO DAILY 08/28/19 Unknown History 2,000 mcg tablet,extended release (Vitamin B-12 ER) omega-3 fatty acids 1,000 mg 1,000 mg PO DAILY 08/28/19 Unknown History capsule (Fish Oil Concentrate) rosuvastatin 5 mg tablet 5 mg PO DAILY 08/28/19 Unknown History ibandronate 150 mg tablet 150 mg PO QMONTH #3 tabs 09/12/19 Unknown Rx diltiazem HCl 360 mg capsule,24 mg PO 05/19/24 Unknown History hr,extended release hydrochlorothiazide 25 mg tablet mg PO 05/19/24 Unknown History Allergy/AdvReac Type Severity Reaction Status Date / Time No Known Allergies Allergy Verified 09/12/19 13:11 Family History Father CAD (coronary artery disease) Sister CVA (cerebral vascular accident) Brother CAD (coronary artery disease) Diabetes Grandmother Breast cancer Social History (Updated 09/26/19 @ 09:[address] Mauro Ruth MD) Smoking Status: Never smoker alcohol intake: never substance use type: does not use frequency: 1-2 times per week EXAM Physical Exam Const Vital Signs: 05/19/24 10:29 Temperature 98.1 F Temperature Source Oral Pulse Rate 60 Respiratory Rate 16 Blood Pressure 161/54 H Blood Pressure Mean 89 Pulse Ox 99 Oxygen Delivery Method Room Air MDM MDM MDM Narrative Medical decision making narrative: 83-year-old female presents for evaluation of right ankle pain after injury. See physical exam findings. Differential diagnosis includes but is not limited to right ankle sprain, ankle contusion, fracture. Patient just took Tylenol prior to arrival. X-ray of the right ankle ordered. X-ray of the right ankle was reviewed. See below. Patient has a distal fibula fracture. This does correlate with her pain. On reevaluation, patient's pain is controlled. We will place her in a walking boot. She does not follow with orthopedics therefore we will have her follow-up with the orthopedic on-call, Dr. Martin. Patient was offered narcotics as needed for severe pain. She declined. She is educated on taking Tylenol as needed for pain. She confirmed understanding the plan. Patient is stable to discharge home. Diagnostic: Interpreted by me/EM physician: Three-view x-ray of the right ankle shows an acute fracture of the distal fibula with soft tissue swelling. This does correlate with the patient's pain. No dislocation. Impression: 1. Right distal fibular fracture 2. Soft tissue swelling of the right ankle Radiography Diagnostic Testing: Clinical Impression(s) from Imaging Studies Ankle X-Ray 05/19/24 10:37 IMPRESSION: Acute minimally displaced fracture in the distal tip of the lateral malleolus with soft tissue swelling No demonstrated fracture in the distal tibia or talus Calcaneal spurs Electronically Signed: Aki Ricks MD at 11:06 EDT , Discharge Plan Triage Chief Complaint: Fall ED Provider: Shahram Jasmine Dx/Rx/DC Orders Prescriptions: No Action chlorthalidone 25 mg tablet 25 mg PO DAILY lisinopril 40 mg tablet 40 mg PO DAILY ibandronate 150 mg tablet 150 mg PO QMONTH Qty: 3 3RF rosuvastatin 5 mg tablet 5 mg PO DAILY aspirin [Aspir-81] 81 mg tablet,delayed release (DR/EC) 81 mg PO DAILY calcium carbonate [Calcium 500] 500 mg calcium (1,250 mg) tablet 500 mg PO DAILY cholecalciferol (vitamin D3) 3,000 unit tablet 2,000 unit PO DAILY cyanocobalamin (vitamin B-12) [Vitamin B-12] 2,000 mcg tablet extended release 2,000 mcg PO DAILY omega-3 fatty acids [Fish Oil Concentrate] 1,000 mg capsule 1,000 mg PO DAILY diltiazem HCl 360 mg capsule,extended release 24 hr PO hydrochlorothiazide 25 mg tablet PO Primary Care Provider: Rae Horn Referrals: Rae Horn, [employer] [Primary Care Provider] - Print Language: Citizen Of [place]
[2024-05-19 11:19] VITALS: BMI 32.7
== END 2024-05-19 11:31 | disposition home or self-care (01) ==
PROVIDERS: Emergency Provider Surgery; PCP Nurse Practitioner Family; Visit Provider Surgery
DX: S82.831A Other fracture of upper and lower end of right fibula, initial encounter for closed fracture (principal); I25.10 Atherosclerotic heart disease of native coronary artery without angina pectoris; I10 Essential (primary) hypertension; Z79.899 Other long term (current) drug therapy; Z79.82 Long term (current) use of aspirin; W18.39XA Other fall on same level, initial encounter; Y93.E9 Activity, other interior property and clothing maintenance; Y92.9 Unspecified place or not applicable
CPT/HCPCS: 73610; 99283

== ENCOUNTER 2025-01-07 11:34 | Emergency (ER) | payer MEDICARE, SELFPAY ==
[2025-01-07 11:34] VITALS: BP 190/80; PULSE 81; RESP 20; TEMP 36.4; O2SAT 100; BMI 32.5
--- NOTE | 2025-01-07 11:43 | EX.ED.DYSGE1 ---
HPI History of Present Illness Chief Complaint: Back Detail of Chief Complaint: Right sided pain is started last evening Informant: patient Onset/Context/Timing Onset: Yesterday Context: Sudden Onset Timing: Continuous Quality: Pain Location: Right upper quadrant/right flank Current Severity: Mild Maximum Severity: Moderate Worsened by: Nothing Relieved by: Nothing Associated Symptoms Associated Symptoms: Nausea Narrative Narrative: patient is a 84-year-old woman. She has history of atherosclerotic coronary disease, hypertension, osteopenia who presents with pain that started the right side 4 to 5 hours after she had chili. She localizes the pain initially between the anterior and posterior axillary line. She then states it went anteriorly and went around to her back. She does endorse intolerance to greasy and fried foods. 4 to 5 hours prior to this she had chili. Patient thought she had a urinary tract infection because she has history of kidney problems and recurrent urinary tract infections. However, she has no dysuria, frequency, urgency or hematuria. Furthermore, she denies fever or chills. She denies any trauma. She denies rash or skin lesions. She denies cough, shortness of breath difficulty breathing. Prior similar symptoms: No Recent Illness/Hospitalization: No [facility] Medical History (Updated 01/07/25 @ 14:[address] Tio Padgett MD) Vitamin deficiency Pneumonia Hives Hypertension Calcium deficiency Cataract Breast lump Frequent UTI Back problem Atherosclerosis of coronary artery of [place] heart without angina pectoris Benign hypertension Home Medications ?Medication ?Instructions ?Recorded ?Last Taken ?Type lisinopril 40 mg tablet 40 mg PO DAILY 05/22/18 01/06/25 History cholecalciferol (vitamin D3) 75 2,000 unit PO DAILY 08/28/19 01/06/25 History mcg (3,000 unit) tablet cyanocobalamin (vitamin B-12) 2,000 mcg PO DAILY 08/28/19 01/06/25 History 2,000 mcg tablet,extended release (Vitamin B-12 ER) rosuvastatin 5 mg tablet 5 mg PO QODAY 08/28/19 01/05/25 History ibandronate 150 mg tablet 150 mg PO QMONTH #3 tabs 09/12/19 Unknown Rx diltiazem HCl 360 mg capsule,24 360 mg PO Q24H 05/19/24 01/06/25 History hr,extended release furosemide 20 mg tablet 20 mg PO DAILY 01/07/25 01/06/25 History Allergy/AdvReac Type Severity Reaction Status Date / Time No Known Allergies Allergy Verified 01/07/25 11:36 Family History Father CAD (coronary artery disease) Sister CVA (cerebral vascular accident) Brother CAD (coronary artery disease) Diabetes Grandmother Breast cancer Social History Smoking Status: Never smoker alcohol intake: never substance use type: does not use frequency: 1-2 times per week ROS ROS ED Constitutional Constitutional ED: Denies chills, fever(s), subjective or sweats ENT ENT ED: Denies rhinorrhea or sore throat Cardiovascular Cardiovascular: Denies chest pain or palpitations Respiratory/Chest Respiratory/Chest: Denies cough, dyspnea or dyspnea on exertion Gastrointestinal Gastrointestinal: Reports abdominal pain and nausea; Denies constipation, diarrhea, melena or vomiting Genitourinary Genitourinary ED: Denies dysuria, hematuria or urinary frequency Musculoskeletal Musculoskeletal: Reports other Details: Right flank pain presently. ; Denies arthralgias, back pain, myalgias or neck pain Integumentary Denies rash Neurologic Neurologic: Denies headache(s) or paresthesias Hematologic/Lymphatic Hematologic/Lymphatic: Reports systems reviewed and no addt'l complaints, except as documented Allergic/Immunologic Allergic/Immunologic ED: Denies mouth swelling or tongue swelling EXAM Physical Exam Const Vital Signs: 01/07/25 11:34 01/07/25 13:28 Temperature 97.6 F L Temperature Source Temporal Pulse Rate 81 70 Respiratory Rate 20 H 19 H Blood Pressure 190/80 H 151/74 H Blood Pressure Mean 116 99 Pulse Ox 100 96 Oxygen Delivery Method Room Air Room Air Positive well nourished and well developed Constitutional Narrative: BMI is 32.5. Patient appears uncomfortable. General Appearance ED: well developed; Negative for cyanotic, diaphoretic or pallor HEENT Reports dry mucous membranes HEENT Narrative: Head is atraumatic and normocephalic. Ears normal. Nares patent. Posterior pharynx is normal. Uvula is midline. Mouth ED: Yes dry mucous membranes Mouth: dry mucous membranes Eyes PERRL and EOMs intact bilaterally General Eye ED: Negative for pale conjunctiva or scleral icterus Neck no lymphadenopathy, supple and no JVD Resp normal respiratory effort and clear to auscultation bilaterally Cardio regular rate, regular rhythm, S1 normal heart sound, S2 normal heart sound and no murmurs GI no masses; Negative for non-tender, non-distended or hepatosplenomegaly GI Narrative: Abdomen is tympanitic to percussion. She does have tenderness in right upper quadrant with a clinical Rodríguez sign. Inspection: abdominal distention Auscultation: hypoactive bowel sounds Palpation: soft Back/Spine no CVA tenderness Extremity normal to inspection General Extremety ED: Negative for edema or tenderness General Extremity: Negative for edema Neuro oriented x3 and CN's II-XII intact bilaterally Sensorium / Orientation: alert Psych mental status grossly normal Skin no rashes or lesions noted, no wounds and skin turgor normal General Skin Exam: Negative for elasticity normal, jaundice or pallor MDM MDM MDM Narrative Medical decision making narrative: Differential diagnosis would include hepatic disease, gallbladder disease, peptic ulcer disease, atypical presentation for ureterolithiasis and also need to consider lower lobe pneumonia however she is not tachypneic she has no abnormal auscultation findings and doubt this is the cause. Patient was medicated with Zofran for her nausea and morphine for her pain. Workup included a comprehensive metabolic panel, CBC and UA. If UA is remarkable for significant mount of blood will obtain CT; otherwise, will obtain ultrasound of the right upper quadrant since she has not eaten since last evening. Lab Data Attestation: I reviewed the patient's lab results. Lab results narrative: CBC reveals mild anemia. Prior HH was 12.6 and 34.5 on July 13, 2023. Urine macro is positive for cloudiness, protein, ketones, occult blood, nitrites and leukoesterase. Patient has no CVA tenderness. She has right upper quadrant tenderness. There was no urinary symptoms will obtain ultrasound prior to initiating any treatment. Labs: Laboratory Results - last 24 hr 01/07/25 01/07/25 11:45 11:55 WBC 8.8 RBC 3.30 L Hgb 11.9 L Hct 32.3 L MCV 97.9 MCH 36.1 H MCHC 36.8 H RDW Std Deviation 49.4 H RDW Coeff of [place] 14.5 Plt Count 172 MPV 10.1 Immature Gran % (Auto) 0.600 Neut % (Auto) 85.2 H Lymph % (Auto) 9.3 L [place] % (Auto) 4.4 Eos % (Auto) 0.2 Baso % (Auto) 0.3 Absolute Neuts (auto) 7.5 Absolute Lymphs (auto) 0.82 L Nucleated RBC % 0 Sodium 136 Potassium 4.1 Chloride 105 Carbon Dioxide 20.3 L Anion Gap 11 BUN 20 H Creatinine 0.72 Estim Creat Clear Calc 48.37 L Est GFR (MDRD) Non-Af 82 BUN/Creatinine Ratio 27.9 H Glucose 100 H Calcium 10.6 Total Bilirubin 1.53 H AST 21 ALT 18 Alkaline Phosphatase 143 H Total Protein 7.2 Albumin 4.4 Globulin 2.8 Albumin/Globulin Ratio 1.6 Urine Color Yellow Urine Clarity Cloudy Urine pH 6.5 Ur Specific [place] 1.010 Urine Protein 100 H Urine Glucose (UA) Normal Urine Ketones 5 H Urine Occult Blood 250 H Urine Nitrite Positive H Urine Bilirubin Negative Urine Urobilinogen 1 H Ur Leukocyte Esterase 100 H Urine RBC 10-25 SEEN Urine WBC 10-25 SEEN Ur Squamous Epith Cells 0 SEEN Urine Bacteria 3+ Urine Mucus 0 SEEN Radiography Diagnostic Testing: Ultrasound was reviewed. There appears to be a polyp and also gallstones. The gallbladder wall is not thickened. Common bile duct does not appear dilated. There is no comment by the sonography whether patient had Rodríguez sign or not. Will wait for formal read by radiologist. Contacted the photo tech. Patient had a negative sonographic Rodríguez sign. The image still has not been read as of 1429. Will set up for her to be discharged home with follow-up with Dr. Vicente. Discharge Plan Triage Chief Complaint: Back ED Provider: Padgett,Tio Dx/Rx/DC Orders Clinical Impression: Biliary colic symptom, Benign hypertension, Primary hyperparathyroidism, Osteopenia determined by x-ray, Atherosclerosis of coronary artery of [place] heart without angina pectoris, Cholelithiasis, Gallbladder polyp, Asymptomatic bacteriuria Instructions: ED Gallstones with Biliary Colic Prescriptions: No Action lisinopril 40 mg tablet 40 mg PO DAILY ibandronate 150 mg tablet 150 mg PO QMONTH Qty: 3 3RF rosuvastatin 5 mg tablet 5 mg PO QODAY cholecalciferol (vitamin D3) 3,000 unit tablet 2,000 unit PO DAILY cyanocobalamin (vitamin B-12) [Vitamin B-12] 2,000 mcg tablet extended release 2,000 mcg PO DAILY diltiazem HCl 360 mg capsule,extended release 24 hr 360 mg PO Q24H furosemide 20 mg tablet 20 mg PO DAILY Primary Care Provider: Rae Horn Referrals: Bhavin Vicente MD [Med Staff - Active Staff] - 1 Week Rae Horn NP-C [Primary Care Provider] - Activity Restrictions/Additional Instructions: 1. Do not eat anything that is greasy or fried. He should not eating any rich desserts like [place] chocolate cake or have butter or cream cheese on Print Language: [place] Disposition Disposition: Home, Self Care
[2025-01-07] MEDS: Ondansetron 4 MG/2 ML Vial IV (11:52)
[2025-01-07] MEDS: Morphine 4 MG/ML Syringe IV (11:53)
[2025-01-07 12:03] LABS: Mucous, Urine 0 SEEN /hpf (<or=2+); Squamous Epithelial Cells - UA 0 SEEN /hpf (5-10)
[2025-01-07 12:05] LABS: Color, Urine Yellow (Yellow); Glucose, Dipstick Normal (Normal); Ketone-Dipstick 5 mg/dl (Negative); Leukocyte Esterase-Dipstick 100 /ul (Negative); Nitrite-Dipstick Positive (Negative); Occult Blood-Urine 250 /ul (Negative); Protein-Dipstick 100 mg/dl (Negative); Urine Bilirubin Dipstick Negative (Negative); Urine Clarity Cloudy (Clear); Urine Urobilinogen 1 mg/dl (Normal); Urine pH 6.5 (5.0 - 8.0)
[2025-01-07 12:14] LABS: Absolute Lymphocyte Count 0.82 X10^3/uL (0.83-4.51); Absolute Neutrophil Count 7.5 X10^3/uL (2.0-7.7); Basophil# 0.03 X10^3/uL; Basophil% 0.3 % (0-1); Eosinophil# 0.02 X10^3/uL; Eosinophils% 0.2 % (0-5); Hematocrit 32.3 % (37-47); Hemoglobin 11.9 g/dL (12.0-15.0); Lymphocyte # 0.82 X10^3/ul (0.83-4.51); Lymphocyte % 9.3 % (19-41); Mean Corp Hgb Conc 36.8 g/dL (32-36); Mean Corpuscular Hgb 36.1 pg (27.0-32.0); Mean Corpuscular Volume 97.9 fL (81-99); Mean Platelet Vol. 10.1 fl (6.2-12.0); Monocyte# 0.39 X10^3/uL; Monocyte% 4.4 % (0-10); NRBC Flagged by Analyzer 0 % (0-5); Neutrophil # 7.47 X10^3/uL (2.7-7.7); Neutrophil % 85.2 % (47-70); Platelet Count 172 K/mm3 (150-450); RBC Distribution Width CV 14.5 % (11.6-14.6); RBC Distribution Width SD 49.4 fl (35.1-43.9); White Blood Count 8.8 K/mm3 (4.4-11.0)
[2025-01-07 12:34] LABS: Bacteria 3+ /hpf (None Seen); Red Blood Cells-Urine 10-25 SEEN /hpf (0-5); White Blood Cells 10-25 SEEN /hpf (0-5)
[2025-01-07 12:39] LABS: ALB/GLOB Ratio 1.6 RATIO (0.9-2.4); AST(SGOT) 21 U/L (<=31); Alanine Aminotransfer ALT/SGPT 18 U/L (<=34); Albumin, Serum 4.4 g/dL (3.4-4.8); Alkaline Phosphatase 143 U/L (35-104); Anion Gap 11 (5-15); BUN 20 mg/dL (4-19); BUN/Creat Ratio 27.9 RATIO (10-20); Calcium,Total 10.6 mg/dL (7.6-11.0); Carbon Dioxide 20.3 mmol/L (21.0-32.0); Chloride 105 mmol/L (98-108); Creatinine, Serum 0.72 mg/dL (0.70-1.20); EST Glomerular Filtration Rate 82 (>60); Estimated Creatinine Clearance 48.37 ml/min (50-250); Globulin 2.8 g/dL (2.2-4.2); Glucose 100 mg/dL (70-99); Potassium 4.1 mmol/L (3.3-5.1); Protein, Total 7.2 g/dL (5.9-8.4); Sodium Level 136 mmol/L (133-145); Total Bilirubin 1.53 mg/dL (0.00-1.30)
--- NOTE | 2025-01-07 12:43 | US_ITS ---
PROCEDURE: ABDOMEN LIMITED 01/07/2025 REASON FOR EXAM: PAIN TECHNIQUE: Complete abdominal ultrasound billy-scale images with color doppler. PATIENT PREPARATION: Per protocol COMPARISON: None FINDINGS: Liver: Lobar contour. Measures 14.6 cm. Echogenicity is within normal limits. Hepatopetal flow Gallbladder: Likely multiple stones vs polyps vs sludge. No gallbladder wall thickening. Negative Rodríguez's sign. No pericholecystic fluid. Common bile duct: Measures 4 mm. No intrahepatic biliary dilatation. Pancreas: Unremarkable Kidneys: The right kidney measures 10.2 cm. No hydronephrosis. Cyst measures 1.6 x 1.6 x 1.5 cm US/Abdomen Limited IMPRESSION: Multiple cholelithiasis versus polyps without evidence of acute cholecystitis. Reading Location: [id number]
[2025-01-07 13:28] VITALS: BP 151/74; PULSE 70; RESP 19; O2SAT 96
[2025-01-07 15:00] VITALS: BP 137/59; PULSE 76; RESP 18; TEMP 36.6; O2SAT 96
== END 2025-01-07 15:07 | disposition home or self-care (01) ==
PROVIDERS: Emergency Provider Emergency Medicine; PCP Nurse Practitioner Family; Visit Provider Emergency Medicine
DX: K80.70 Calculus of gallbladder and bile duct without cholecystitis without obstruction (principal); I25.10 Atherosclerotic heart disease of native coronary artery without angina pectoris; R82.71 Bacteriuria; M85.80 Other specified disorders of bone density and structure, unspecified site; E21.0 Primary hyperparathyroidism; I10 Essential (primary) hypertension
CPT/HCPCS: 76705; 80053; 81001; 85025; 96374; 96375; 99283; J2405

== ENCOUNTER → 2025-07-01 | Outpatient (CLI) | payer MEDICARE, SELFPAY ==
--- NOTE | 2025-07-01 13:06 | RAD_ITS ---
PROCEDURE: CHEST PA AND LATERAL 07/01/2025 REASON FOR EXAM: ABNORMAL LUNG SOUNDS TECHNIQUE: Procedure Code: RADCXR Modality: DX Procedure: CHEST PA AND LATERAL FINDINGS: No focal consolidation. Mild pulmonary vascular congestion. No pleural effusion or pneumothorax. Cardiac silhouette is within normal limits. Calcified aortic arch. No acute fractures. RAD/Chest PA and Lateral IMPRESSION: No focal consolidation. Mild pulmonary vascular congestion. Reading Location: [id number]
== END | disposition home or self-care (01) ==
LOC: MTLAB 12:43 → MTRAD 12:58
PROVIDERS: PCP Nurse Practitioner Family; Referring Provider Nurse Practitioner Family; Visit Provider Nurse Practitioner Family
DX: R09.89 Other specified symptoms and signs involving the circulatory and respiratory systems (principal)
CPT/HCPCS: 71046

== ENCOUNTER → 2025-07-10 | Outpatient (CLI) | payer MEDICARE, SELFPAY ==
[2025-07-10 12:37] LABS: Hematocrit 32.1 % (37-47); Hemoglobin 11.5 g/dL (12.0-15.0); Immature Granulocytes Count 0.010 X10^3/uL (0.0-0.0); Mean Corp Hgb Conc 35.8 g/dL (32-36); Mean Corpuscular Volume 101.3 fL (81-99); Mean Platelet Vol. 10.5 fl (6.2-12.0); NRBC Flagged by Analyzer 0 % (0-5); Platelet Count 165 K/mm3 (150-450); RBC Distribution Width CV 14.2 % (11.6-14.6); RBC Distribution Width SD 51.6 fl (35.1-43.9); Red Blood Count 3.17 M/mm3 (4.2-5.4); White Blood Count 4.7 K/mm3 (4.4-11.0)
[2025-07-10 13:24] LABS: AST(SGOT) 15 U/L (<=31); Alanine Aminotransfer ALT/SGPT 9 U/L (<=34); Albumin, Serum 4.0 g/dL (3.4-4.8); Alkaline Phosphatase 105 U/L (35-104); Anion Gap 9 (5-15); BUN 19 mg/dL (4-19); BUN/Creat Ratio 22.9 RATIO (10-20); Calcium,Total 11.3 mg/dL (7.6-11.0); Carbon Dioxide 24.0 mmol/L (21.0-32.0); Chloride 108 mmol/L (98-108); Cholesterol 140 mg/dL (<=200); Globulin 2.7 g/dL (2.2-4.2); Glucose 96 mg/dL (70-99); Low Density Lipoprotein Calc. 61 mg/dL; Potassium 4.2 mmol/L (3.3-5.1); Triglycerides 109 mg/dL; Very Low Density Lipoprotein 22 mg/dL (5-40); cholesterol:hdl ratio screen 2.36
== END | disposition home or self-care (01) ==
LOC: CIMLAB 09:51
PROVIDERS: PCP Nurse Practitioner Family; Referring Provider Nurse Practitioner Family; Visit Provider Nurse Practitioner Family
DX: I10 Essential (primary) hypertension (principal); E21.0 Primary hyperparathyroidism
CPT/HCPCS: 36415; 80053; 80061; 85025